=== PATIENT | male | born 1940 | race Caucasian/White ===

== ENCOUNTER 2017-09-30 13:23 | Emergency (ER) | payer MEDICARE, OTHER ==
[~2017-09-30] VITALS: Ht 185.4 cm; Wt 74.0 kg
[2017-09-30 14:02] LABS: BASOPHILS # (AUTO) 0.02 x10^3/uL (0-0.1); BASOPHILS % (AUTO) 0 % (0-1); EOSINOPHILS # (AUTO) 0.16 x10^3/uL (0-0.4); EOSINOPHILS % (AUTO) 3 % (1-7); LYMPHOCYTES # (AUTO) 1.06 x10^3/uL (1-3.4); LYMPHOCYTES % (AUTO) 17 % (22-44); MD NO; MEAN CORPUSCULAR HEMOGLOBIN 33.3 pg (27.5-34.5); MEAN CORPUSCULAR HGB CONC 33.6 g/dL (33.2-36.2); MEAN CORPUSCULAR VOLUME 99.1 fL (81-97); MEAN PLATELET VOLUME 7.8 fL (7.4-10.4); MONOCYTES # (AUTO) 0.54 x10^3/uL (0.2-0.8); MONOCYTES % (AUTO) 9 % (2-9); NEUTROPHILS # (AUTO) 4.54 x10^3/uL (1.8-6.8); NEUTROPHILS % (AUTO) 72 % (42-75); PLATELET COUNT 208 x10^3/uL (130-400); RED BLOOD COUNT 4.12 x10^6/uL (4.38-5.82); RED CELL DISTRIBUTION WIDTH 13.8 % (9.4-14.8)
[2017-09-30 14:09] LABS: CHLORIDE 108 mmol/L (98-107)
[2017-09-30 14:10] LABS: ALBUMIN 3.5 g/dL (3.4-5.0); ANION GAP 7 mmol/L (5-15); CALCIUM 8.2 mg/dL (8.5-10.1); CREATININE 1.19 mg/dL (0.7-1.3)
[2017-09-30 14:14] LABS: TROPONIN I < 0.015 ng/mL (0.000-0.045)
[2017-09-30 17:20] VITALS: BP 130/71
== END 2017-09-30 17:23 | disposition home or self-care (01) ==
LOC: ED 17:17
DX: S00.03XA Contusion of scalp, initial encounter (principal); M47.892 Other spondylosis, cervical region; M19.031 Primary osteoarthritis, right wrist; W19.XXXA Unspecified fall, initial encounter; Y93.89 Activity, other specified; Y99.8 Other external cause status; Y92.89 Other specified places as the place of occurrence of the external cause
CPT/HCPCS: 36415; 70450; 71045; 72125; 80048; 82040; 84484; 85025; 93005; 99285

== ENCOUNTER 2017-12-03 16:27 | Emergency (ER) | payer OTHER ==
[~2017-12-03] VITALS: Ht 182.9 cm; Wt 72.2 kg
[2017-12-03 16:39] VITALS: BP 158/88
[2017-12-03 17:16] LABS: BASOPHILS # (AUTO) 0.03 x10^3/uL (0-0.1); BASOPHILS % (AUTO) 0 % (0-1); EOSINOPHILS # (AUTO) 0.31 x10^3/uL (0-0.4); EOSINOPHILS % (AUTO) 5 % (1-7); LYMPHOCYTES # (AUTO) 2.22 x10^3/uL (1-3.4); LYMPHOCYTES % (AUTO) 33 % (22-44); MD NO; MEAN CORPUSCULAR HEMOGLOBIN 33.9 pg (27.5-34.5); MEAN CORPUSCULAR VOLUME 99.7 fL (81-97); MEAN PLATELET VOLUME 7.7 fL (7.4-10.4); MONOCYTES # (AUTO) 0.64 x10^3/uL (0.2-0.8); MONOCYTES % (AUTO) 9 % (2-9); NEUTROPHILS # (AUTO) 3.55 x10^3/uL (1.8-6.8); NEUTROPHILS % (AUTO) 53 % (42-75); PLATELET COUNT 253 x10^3/uL (130-400); RED BLOOD COUNT 4.51 x10^6/uL (4.38-5.82); RED CELL DISTRIBUTION WIDTH 13.9 % (9.4-14.8)
[2017-12-03 17:27] LABS: ALBUMIN 3.7 g/dL (3.4-5.0); ANION GAP 6 mmol/L (5-15); CALCIUM 8.9 mg/dL (8.5-10.1); CHLORIDE 107 mmol/L (98-107)
[2017-12-03 17:32] LABS: ALANINE AMINOTRANSFERASE 18 U/L (12-78); ALKALINE PHOSPHATASE 53 U/L (45-117); BILIRUBIN,TOTAL 0.5 mg/dL (0.2-1.0); CREATININE 0.87 mg/dL (0.7-1.3); TOTAL PROTEIN 7.5 g/dL (6.4-8.2)
[2017-12-03 17:39] LABS: MICROSCOPIC AUTO
[2017-12-03 17:41] LABS: CULTURE INDICATED? YES
[2017-12-03] MEDS ORDERED: HYDROcodone/APAP 5/325 TABLET ONE (18:29)
[2017-12-03] MEDS ORDERED: HYDROcodone/APAP 5/325 TABLET PO ONE (18:30)
== END 2017-12-03 20:30 | disposition home or self-care (01) ==
LOC: ED 17:41
DX: S33.5XXA Sprain of ligaments of lumbar spine, initial encounter (principal); M47.896 Other spondylosis, lumbar region; R39.15 Urgency of urination; R35.0 Frequency of micturition; X50.1XXA Overexertion from prolonged static or awkward postures, initial encounter; Y93.89 Activity, other specified; Y99.8 Other external cause status; Y92.89 Other specified places as the place of occurrence of the external cause
CPT/HCPCS: 36415; 74176; 80053; 81001; 85025; 87077; 87086; 87186; 99285

== ENCOUNTER 2017-12-04 14:57 | Emergency (ER) | payer OTHER ==
[~2017-12-04] VITALS: Ht 182.9 cm; Wt 66.9 kg
[2017-12-04 15:31] LABS: BASOPHILS # (AUTO) 0.01 x10^3/uL (0-0.1); BASOPHILS % (AUTO) 0 % (0-1); EOSINOPHILS # (AUTO) 0.18 x10^3/uL (0-0.4); EOSINOPHILS % (AUTO) 3 % (1-7); LYMPHOCYTES % (AUTO) 21 % (22-44); MD NO; MEAN CORPUSCULAR HGB CONC 33.3 g/dL (33.2-36.2); MEAN PLATELET VOLUME 7.8 fL (7.4-10.4); MONOCYTES # (AUTO) 0.45 x10^3/uL (0.2-0.8); MONOCYTES % (AUTO) 6 % (2-9); NEUTROPHILS # (AUTO) 5.06 x10^3/uL (1.8-6.8); NEUTROPHILS % (AUTO) 70 % (42-75); PLATELET COUNT 237 x10^3/uL (130-400); RED BLOOD COUNT 4.47 x10^6/uL (4.38-5.82); RED CELL DISTRIBUTION WIDTH 13.9 % (9.4-14.8)
[2017-12-04 15:44] LABS: ALANINE AMINOTRANSFERASE 16 U/L (12-78); ALBUMIN 3.4 g/dL (3.4-5.0); ANION GAP 3 mmol/L (5-15); CALCIUM 8.6 mg/dL (8.5-10.1); CHLORIDE 110 mmol/L (98-107); CREATININE 0.85 mg/dL (0.7-1.3)
[2017-12-04 15:47] LABS: ALKALINE PHOSPHATASE 52 U/L (45-117); BILIRUBIN,TOTAL 0.5 mg/dL (0.2-1.0)
[2017-12-04] MEDS ORDERED: MORPHINE SULFATE 4 MG/ML, 1ML IVPush ONE (17:30)
[2017-12-04] MEDS ORDERED: MORPHINE SULFATE 4 MG/ML, 1ML ONE (18:22)
[2017-12-04 18:25] LABS: MICROSCOPIC INDICATED
[2017-12-04] MEDS ORDERED: METHOCARBAMOL 750 MG TABLET ONE (19:46)
[2017-12-04 19:59] VITALS: BP 116/66
[2017-12-04] MEDS ORDERED: METHOCARBAMOL 500 MG TABLET PO ONE (20:00)
[2017-12-04] MEDS ORDERED: METHOCARBAMOL 750 MG TABLET PO ONE (20:00)
== END 2017-12-04 20:01 | disposition home or self-care (01) ==
LOC: ED 19:33
DX: S39.012A Strain of muscle, fascia and tendon of lower back, initial encounter (principal); X58.XXXA Exposure to other specified factors, initial encounter; Y93.89 Activity, other specified; Y92.89 Other specified places as the place of occurrence of the external cause; Y99.8 Other external cause status
CPT/HCPCS: 36415; 72148; 76770; 80053; 81001; 85025; 96374

== ENCOUNTER → 2018-01-27 | Outpatient (CLI) | payer OTHER ==
[~2018-01-27] MED LIST: NONE PER PT
[2018-01-27 12:31] LABS: MICROSCOPIC AUTO
[2018-01-27 12:33] LABS: BASOPHILS # (AUTO) 0.02 x10^3/uL (0-0.1); BASOPHILS % (AUTO) 0 % (0-1); EOSINOPHILS % (AUTO) 2 % (1-7); LYMPHOCYTES # (AUTO) 1.46 x10^3/uL (1-3.4); LYMPHOCYTES % (AUTO) 24 % (22-44); MD NO; MEAN CORPUSCULAR HEMOGLOBIN 33.3 pg (27.5-34.5); MEAN CORPUSCULAR HGB CONC 33.7 g/dL (33.2-36.2); MEAN CORPUSCULAR VOLUME 98.8 fL (81-97); MONOCYTES # (AUTO) 0.52 x10^3/uL (0.2-0.8); MONOCYTES % (AUTO) 9 % (2-9); NEUTROPHILS # (AUTO) 4.06 x10^3/uL (1.8-6.8); NEUTROPHILS % (AUTO) 66 % (42-75); PLATELET COUNT 225 x10^3/uL (130-400); RED BLOOD COUNT 4.35 x10^6/uL (4.38-5.82); RED CELL DISTRIBUTION WIDTH 13.5 % (9.4-14.8)
[2018-01-27 12:40] LABS: ALBUMIN 3.5 g/dL (3.4-5.0); ANION GAP 6 mmol/L (5-15); CALCIUM 8.5 mg/dL (8.5-10.1); CHLORIDE 107 mmol/L (98-107)
[2018-01-27 12:44] LABS: ALANINE AMINOTRANSFERASE 19 U/L (12-78); ALKALINE PHOSPHATASE 66 U/L (45-117); BILIRUBIN,TOTAL 0.4 mg/dL (0.2-1.0); CREATININE 1.04 mg/dL (0.7-1.3); INTERNATIONAL NORMALIZED RATIO 1.04 (0.93-1.1); TOTAL PROTEIN 7.3 g/dL (6.4-8.2)
== END | disposition home or self-care (01) ==
LOC: STAR 11:15
PROVIDERS: ATTEND Urology
DX: Z01.818 Encounter for other preprocedural examination (principal); N40.1 Benign prostatic hyperplasia with lower urinary tract symptoms
CPT/HCPCS: 36415; 80053; 81001; 85025; 85610; 85730; 87077; 87086; 87186; 93005

== ENCOUNTER 2018-02-04 10:40 | Inpatient (IN) | payer OTHER ==
[~2018-02-04] VITALS: Ht 185.4 cm; Wt 62.7 kg
[2018-02-04 11:07] VITALS: BP 110/72
[2018-02-04] MEDS ORDERED: AMOXICILLIN PO (11:14)
[2018-02-04] MEDS: LACTATED RINGERS 1,000 ML IV SCH ×3 (11:35→18:22)
[2018-02-04] MEDS ORDERED: MIDAZOLAM 1 MG/ML, 2ML ONE (11:52)
[2018-02-04] MEDS ORDERED: FENTANYL PF 250 MCG/5ML ONE (11:52)
[2018-02-04] MEDS ORDERED: PROPOFOL 10 MG/ML, 20ML ONE (11:54)
[2018-02-04] MEDS ORDERED: NEOSTIGMINE 1 MG/ML, 10ML ONE (11:54)
[2018-02-04] MEDS ORDERED: ROCURONIUM 10MG/ML,5ML ONE (11:54)
[2018-02-04] MEDS ORDERED: GLYCOPYRROLATE 0.2MG/1ML, 5ML ONE (11:54)
[2018-02-04] MEDS ORDERED: CEFAZOLIN 1,000 MG ONE (11:54)
[2018-02-04] MEDS ORDERED: FENTANYL PF 100 MCG/2ML IV PRN (12:30)
[2018-02-04] MEDS ORDERED: ONDANSETRON ODT 8 MG PO PRN (12:30)
[2018-02-04] MEDS ORDERED: PROMETHAZINE 25 MG SUPP PR PRN (12:30)
[2018-02-04] MEDS ORDERED: MEPERIDINE/PF 25MG/0.5ML IVPush PRN (12:30)
[2018-02-04] MEDS ORDERED: PROMETHAZINE 12.5 MG SUPP PR PRN (12:30)
[2018-02-04] MEDS ORDERED: LABETALOL 5MG/ML, 20ML IV PRN (12:30)
[2018-02-04] MEDS ORDERED: MORPHINE SULFATE 4 MG/ML, 1ML IVPush PRN (12:30)
[2018-02-04] MEDS ORDERED: HYDROmorphone 2 MG/ML, 1ML IVPush PRN (12:30)
[2018-02-04] MEDS ORDERED: ACETAMINOPHEN 325 MG TABLET PO PRN ×2 (12:30→17:00)
[2018-02-04] MEDS ORDERED: OXYcodone 5 MG/5 ML ORAL.SOL UDC PO PRN (12:30)
[2018-02-04] MEDS ORDERED: PROMETHAZINE 25 MG/ML, 1ML IM PRN ×2 (12:30)
[2018-02-04] MEDS ORDERED: hydrALAzine 20 MG/ML, 1ML IV PRN (12:30)
[2018-02-04] MEDS ORDERED: PROMETHAZINE 25 MG/ML, 1ML IV PRN (12:30)
[2018-02-04] MEDS ORDERED: ONDANSETRON 2MG/ML, 2ML IV PRN ×2 (12:30→17:00)
[2018-02-04] MEDS ORDERED: PHENYLEPHRINE 10 MG/ML ONE (12:53)
[2018-02-04] MEDS ORDERED: AMPICILLIN 1 GM ONE (12:55)
[2018-02-04] MEDS ORDERED: MEPERIDINE/PF 50 MG/ML ONE (15:03)
[2018-02-04] MEDS ORDERED: ACETAMINOPHEN 325 MG TABLET ONE (15:25)
[2018-02-04] MEDS ORDERED: OXYcodone 5 MG/5 ML ORAL.SOL UDC ONE (15:25)
[2018-02-04] MEDS ORDERED: ACETAMINOPHEN 650 MG/20.3 ML UDC ONE (15:25)
[2018-02-04] MEDS ORDERED: OPIUM/BELLADONNA SUPP.RECT 16.2-60 MG PR PRN (17:00)
[2018-02-04] MEDS: AMOXICILLIN 250 MG CAPSULE PO SCH (17:00)
[2018-02-04] MEDS ORDERED: morphine SULFATE 10 MG/ML, 1ML IV PRN (17:00)
[2018-02-04] MEDS ORDERED: HYDROcodone/APAP 5/325 TABLET PO PRN (17:00)
[2018-02-04 20:00] VITALS: BP 120/71
[2018-02-05] MEDS: AMOXICILLIN 250 MG CAPSULE PO SCH ×2 (01:12→08:57)
[2018-02-05 02:00] VITALS: BP 93/58
[2018-02-05] MEDS: LACTATED RINGERS 1,000 ML IV SCH ×2 (04:11→13:00)
[2018-02-05 05:48] LABS: CHLORIDE 107 mmol/L (98-107)
[2018-02-05 05:55] LABS: ANION GAP 7 mmol/L (5-15); CALCIUM 8.2 mg/dL (8.5-10.1); CREATININE 0.84 mg/dL (0.7-1.3)
[2018-02-05 08:10] VITALS: BP 97/55
[2018-02-05 12:40] VITALS: BP 111/63
== END 2018-02-05 13:24 | disposition home or self-care (01) | DRG 666 ==
LOC: OUT 10:40 → 4NOR 16:17 → OUT 16:40 → DCLOUNGE 02-05 13:15
PROVIDERS: ADMIT Urology; ATTEND Urology
PROC: 0VT08ZZ Resection of Prostate, Via Natural or Artificial Opening Endoscopic (ICD-10-PCS; principal; 2018-02-04 12:00)
PROC: 0TCB8ZZ Extirpation of Matter from Bladder, Via Natural or Artificial Opening Endoscopic (ICD-10-PCS; 2018-02-04 12:00)
DX: N21.0 Calculus in bladder (principal); N13.8 Other obstructive and reflux uropathy; N40.1 Benign prostatic hyperplasia with lower urinary tract symptoms; N32.0 Bladder-neck obstruction; N32.89 Other specified disorders of bladder; N32.3 Diverticulum of bladder; Z87.440 Personal history of urinary (tract) infections
CPT/HCPCS: 36415; 80048; 82360; 85014; 85018; 88300; 88305; G0378; J0290; J0690; J2175; J2250; J2704; J2710; J3010; J3490; J2370; J7120

== ENCOUNTER 2018-02-08 17:22 | Observation (INO) | payer OTHER ==
[~2018-02-08] VITALS: Ht 185.4 cm; Wt 73.2 kg
[~2018-02-08 17:22] MED LIST changes: +AMOXICILLIN PO
[2018-02-08 17:59] LABS: BASOPHILS % (AUTO) 0 % (0-1); EOSINOPHILS # (AUTO) 0.23 x10^3/uL (0-0.4); EOSINOPHILS % (AUTO) 3 % (1-7); LYMPHOCYTES # (AUTO) 1.05 x10^3/uL (1-3.4); LYMPHOCYTES % (AUTO) 12 % (22-44); MD NO; MEAN CORPUSCULAR HEMOGLOBIN 32.9 pg (27.5-34.5); MEAN CORPUSCULAR HGB CONC 33.5 g/dL (33.2-36.2); MEAN CORPUSCULAR VOLUME 97.9 fL (81-97); MEAN PLATELET VOLUME 7.9 fL (7.4-10.4); MONOCYTES # (AUTO) 0.71 x10^3/uL (0.2-0.8); MONOCYTES % (AUTO) 8 % (2-9); NEUTROPHILS % (AUTO) 78 % (42-75); PLATELET COUNT 215 x10^3/uL (130-400); RED BLOOD COUNT 3.72 x10^6/uL (4.38-5.82); RED CELL DISTRIBUTION WIDTH 13.1 % (9.4-14.8)
[2018-02-08] MEDS ORDERED: SODIUM CHLORIDE FLUSH 10ML SYR IVF ONE (18:00)
[2018-02-08 18:06] LABS: CULTURE INDICATED? YES; MICROSCOPIC INDICATED
[2018-02-08 18:08] LABS: INTERNATIONAL NORMALIZED RATIO 1.01 (0.93-1.1); PROTHROMBIN TIME 10.7 Seconds (9.6-11.5)
[2018-02-08 18:09] LABS: ALANINE AMINOTRANSFERASE 12 U/L (12-78); ALBUMIN 2.9 g/dL (3.4-5.0); ANION GAP 9 mmol/L (5-15); CHLORIDE 105 mmol/L (98-107)
[2018-02-08 18:12] LABS: ALKALINE PHOSPHATASE 52 U/L (45-117); BILIRUBIN,TOTAL 0.5 mg/dL (0.2-1.0); CREATININE 2.47 mg/dL (0.7-1.3); TOTAL PROTEIN 6.1 g/dL (6.4-8.2)
[2018-02-08] MEDS ORDERED: SODIUM CHLORIDE FLUSH 10ML SYR IVF PRN (20:00)
[2018-02-08] MEDS ORDERED: ONDANSETRON ODT 4 MG PO PRN (21:00)
[2018-02-08] MEDS ORDERED: ACETAMINOPHEN 325 MG TABLET PO PRN (21:00)
[2018-02-08] MEDS ORDERED: POLYETHYLENE GLYCOL 17 GM PACKET PO PRN (21:00)
[2018-02-08] MEDS ORDERED: BISACODYL 10 MG SUPP PR PRN (21:00)
[2018-02-08 21:29] LABS: FOLATE LEVEL 9.9 ng/mL (3.1-17.5)
[2018-02-08] MEDS: SODIUM CHLORIDE 0.9% 1,000 ML IV SCH (22:34)
[2018-02-08] MEDS: CEFTRIAXONE PMX 1GM/50ML 50 ML IV SCH (22:35)
[2018-02-09 02:01] LABS: CREATININE,URINE RANDOM 54.6 mg/dL
[2018-02-09 02:20] VITALS: BP 99/66
[2018-02-09 05:17] LABS: BASOPHILS # (AUTO) 0.03 x10^3/uL (0-0.1); BASOPHILS % (AUTO) 0 % (0-1); EOSINOPHILS # (AUTO) 0.42 x10^3/uL (0-0.4); EOSINOPHILS % (AUTO) 5 % (1-7); LYMPHOCYTES # (AUTO) 1.56 x10^3/uL (1-3.4); LYMPHOCYTES % (AUTO) 19 % (22-44); MD NO; MEAN CORPUSCULAR HEMOGLOBIN 33.3 pg (27.5-34.5); MEAN CORPUSCULAR HGB CONC 33.8 g/dL (33.2-36.2); MEAN CORPUSCULAR VOLUME 98.6 fL (81-97); MEAN PLATELET VOLUME 8.1 fL (7.4-10.4); MONOCYTES # (AUTO) 0.73 x10^3/uL (0.2-0.8); MONOCYTES % (AUTO) 9 % (2-9); NEUTROPHILS # (AUTO) 5.37 x10^3/uL (1.8-6.8); NEUTROPHILS % (AUTO) 66 % (42-75); PLATELET COUNT 209 x10^3/uL (130-400); RED BLOOD COUNT 3.62 x10^6/uL (4.38-5.82)
[2018-02-09 05:29] LABS: ALANINE AMINOTRANSFERASE 11 U/L (12-78); ALBUMIN 2.7 g/dL (3.4-5.0); ANION GAP 6 mmol/L (5-15); CHLORIDE 110 mmol/L (98-107); CREATININE 1.14 mg/dL (0.7-1.3)
[2018-02-09 05:32] LABS: ALKALINE PHOSPHATASE 49 U/L (45-117); BILIRUBIN,TOTAL 0.5 mg/dL (0.2-1.0)
[2018-02-09] MEDS: SODIUM CHLORIDE 0.9% 1,000 ML IV SCH ×2 (05:42→22:33)
[2018-02-09 06:49] VITALS: BP 104/54
[2018-02-09] MEDS: TAMSULOSIN 0.4 MG CAP.ER.24H PO SCH (09:08)
[2018-02-09] MEDS: SENNA/DOCUSATE TABLET PO SCH (09:08)
[2018-02-09 13:59] VITALS: BP 105/53
[2018-02-09 20:05] VITALS: BP 96/61
[2018-02-09] MEDS: CEFTRIAXONE PMX 1GM/50ML 50 ML IV SCH (22:34)
[2018-02-10 02:04] VITALS: BP 108/61
[2018-02-10 05:44] LABS: ANION GAP 5 mmol/L (5-15); CALCIUM 7.3 mg/dL (8.5-10.1); CHLORIDE 111 mmol/L (98-107); CREATININE 0.87 mg/dL (0.7-1.3)
[2018-02-10 06:50] VITALS: BP 112/68
[2018-02-10] MEDS: TAMSULOSIN 0.4 MG CAP.ER.24H PO SCH (09:00)
[2018-02-10] MEDS: SENNA/DOCUSATE TABLET PO SCH (09:00)
[2018-02-10] MEDS: SODIUM CHLORIDE 0.9% 1,000 ML IV SCH ×2 (13:16→16:20)
[2018-02-10 14:01] VITALS: BP 103/62
[2018-02-10 18:28] LABS: MICROSCOPIC AUTO
[2018-02-10 18:29] LABS: CULTURE INDICATED? YES
[2018-02-10 20:00] VITALS: BP 108/68
[2018-02-10] MEDS: LACTOBACILLUS CHEW TABLET PO SCH (21:29)
[2018-02-10] MEDS: CEFTRIAXONE PMX 1GM/50ML 50 ML IV SCH (23:04)
[2018-02-11 02:00] VITALS: BP 110/58
[2018-02-11 06:06] LABS: BASOPHILS # (AUTO) 0.02 x10^3/uL (0-0.1); BASOPHILS % (AUTO) 0 % (0-1); CHLORIDE 109 mmol/L (98-107); EOSINOPHILS # (AUTO) 0.45 x10^3/uL (0-0.4); EOSINOPHILS % (AUTO) 7 % (1-7); LYMPHOCYTES % (AUTO) 20 % (22-44); MD NO; MEAN CORPUSCULAR HEMOGLOBIN 33.4 pg (27.5-34.5); MEAN CORPUSCULAR HGB CONC 33.5 g/dL (33.2-36.2); MEAN CORPUSCULAR VOLUME 99.5 fL (81-97); MEAN PLATELET VOLUME 7.6 fL (7.4-10.4); MONOCYTES # (AUTO) 0.51 x10^3/uL (0.2-0.8); MONOCYTES % (AUTO) 8 % (2-9); NEUTROPHILS # (AUTO) 4.15 x10^3/uL (1.8-6.8); NEUTROPHILS % (AUTO) 65 % (42-75); PLATELET COUNT 226 x10^3/uL (130-400); RED BLOOD COUNT 3.56 x10^6/uL (4.38-5.82); RED CELL DISTRIBUTION WIDTH 12.9 % (9.4-14.8)
[2018-02-11 06:29] LABS: ALBUMIN 2.8 g/dL (3.4-5.0); ANION GAP 8 mmol/L (5-15); CALCIUM 8.3 mg/dL (8.5-10.1); CREATININE 0.93 mg/dL (0.7-1.3)
[2018-02-11] MEDS: LACTOBACILLUS CHEW TABLET PO SCH (07:58)
[2018-02-11] MEDS: SENNA/DOCUSATE TABLET PO SCH (07:59)
[2018-02-11] MEDS: SODIUM CHLORIDE 0.9% 1,000 ML IV SCH (08:08)
[2018-02-11] MEDS: TAMSULOSIN 0.4 MG CAP.ER.24H PO SCH (09:00)
[2018-02-11 09:32] VITALS: BP 122/69
[2018-02-11 15:20] VITALS: BP 119/64
[2018-02-11] MEDS ORDERED: ACID1TAB7 PO (15:26)
[2018-02-11] MEDS ORDERED: CEFD300C37 PO (15:26)
== END 2018-02-11 16:55 | disposition home or self-care (01) ==
LOC: ED 19:52 → INTOOBSV 19:54 → EDIP 19:54 → 4NOR 21:15 → DCLOUNGE 02-11 16:45
PROVIDERS: ADMIT Internal Medicine; ATTEND Internal Medicine
DX: A41.9 Sepsis, unspecified organism (principal); N17.9 Acute kidney failure, unspecified; N40.1 Benign prostatic hyperplasia with lower urinary tract symptoms; R31.9 Hematuria, unspecified; N39.0 Urinary tract infection, site not specified; D53.9 Nutritional anemia, unspecified; E44.0 Moderate protein-calorie malnutrition
CPT/HCPCS: 36415; 80048; 80053; 81001; 82040; 82436; 82570; 82607; 82746; 83605; 84133; 84300; 85025; 85610; 85730; 87040; 87086; 96365; 96366; 97161; 97530; 99284; G0378; J0696; J7030